=== PATIENT | male | born 1990 | race Caucasian/White ===

== ENCOUNTER 2017-06-01 02:15 | Inpatient (IN) | payer OTHER ==
[~2017-06-01] VITALS: Ht 187.9 cm; Wt 70.1 kg
[2017-06-01] VITALS (9 sets, daily range): BP systolic 101–144; BP diastolic 31–81
--- NOTE | ~2017-06-01 | ST ---
[place], [place] EXERCISE STRESS TEST [facility]PORT [id number] UN[facility] #: [id number] ROOM: 504 DOCTOR: BRENDA MOHAN MD BIRTHDATE: [birth year] DOS: 06/01/2017 INDICATION: Chest pain. PROCEDURE: The patient was exercised on treadmill using Javad protocol. The patient exercised for 10 minutes, reaching 91% of his maximum predicted heart rate. Maximal workload was 12 METs. Test was terminated due to achieving target heart rate. No complaint of chest pain, chest pressure, heaviness or tightness. BLOOD PRESSURE RESPONSE: Resting blood pressure 122/74 with ending blood pressure 122/80. ELECTROCARDIOGRAM INTERPRETATION: The resting echocardiogram showed normal sinus rhythm with early repolarization ____ RSR prime in V1 and V2. At the peak of the stress test, there was no evidence of any significant ST or T-wave changes suggestive of myocardial ischemia. No arrhythmias were noted. SUMMARY: 1. Adequate stress test with good functional capacity. 2. Negative treadmill stress test for stress induced myocardial ischemia. 3. No arrhythmia noted. 4. Blunted blood pressure response to exercise. 5. No nuclear were done. BRENDA MOHAN MD CM:STRESS:EXERCISE STRESS TEST REPORT [id number] BRENDA MOHAN MD
[~2017-06-01 02:15] MED LIST: ANAPROX DS550 MG PO; ATIVAN1 MG PO; CYCLOBENZAPRINE10 MG PO; CYCLOBENZAPRINE5 M3 PO; DAYPRO600 M1 PO; FLONASE ALLERG9.9 ML NS; FLONASE0.05 MG/AC NS; GEODON20 MG PO; GEODON60 MG PO; IBU-8800 MG PO; INDOMETHACIN ER75 MG PO; INDOMETHACIN25 M1 PO; K-DUR 20MEQ20 MEQ PO; KEFLEX500 MG PO; LATU20TA PO; LOTRIMIN 1%15 GM PO; MOOD STABILIZER PO; MOTRIN600 MG PO; MOTRIN800 MG PO; Motrin,Rufen800 MG PO; NAPROSYN500 MG PO; NASAL SALINE 4444 ML NS; NKHM; Orphenadrine C100 MG PO; PEPCID20 MG PO; PREDNISONE10 MG PO; RISPERDAL3 MG PO; ROBAXIN750 MG PO; SAPHRIS5 M1 SL; SEPTRA DS 800 M1 TAB PO; VISTARIL25 MG PO; VOLTAREN50 M1 PO; ZITHROMAX250 MG PO; ZOFRAN4 MG PO; ZYRTEC10 MG PO; Zofran4 MG PO
[2017-06-01 02:58] LABS: BASO # 0.1 10*3/uL (0.0-0.1); BASO % 1.4 % (0.0-1.0); EOS # 0.9 10*3/uL (0.0-0.4); EOS % 9.8 % (1.0-4.0); HEMATOCRIT 40.1 % (42.0-52.0); HEMOGLOBIN 14.2 g/dl (14.0-18.0); LYMPH # 3.8 10*3/uL (1.3-4.4); LYMPH % 40.8 % (27.0-41.0); MEAN CELL VOLUME 84.4 fl (80.0-94.0); MEAN CORPUSCULAR HGB 29.9 pg (27.0-31.0); MEAN CORPUSCULAR HGB CONC 35.4 g/dl (33.0-37.0); MEAN PLATELET VOLUME 9.9 fl (9.6-12.3); MONO # 0.7 10*3/uL (0.1-1.0); MONO % 7.5 % (3.0-9.0); NEUT # 3.7 10*3/uL (2.3-7.9); NEUT % 40.3 % (47.0-73.0); PLATELET COUNT AUTOMATED 238 10*3/uL (130-400); RED BLOOD COUNT 4.75 10*6/uL (4.50-5.90); RED CELL DISTRI WIDTH 12.9 % (0-14.5); WHITE BLOOD COUNT 9.2 10*3/uL (4.8-10.8)
[2017-06-01 03:17] LABS: ALBUMIN 3.8 gm/dl (3.1-4.5); ALKALINE PHOSPHATASE 59 U/L (45-117); BUN 13 mg/dl (7-24); CHLORIDE 105 mmol/L (98-107); CREATININE 1.06 mg/dL (0.70-1.30); POTASSIUM 3.3 mmol/L (3.5-5.1); SGOT/AST 20 IU/L (3-35); SGPT/ALT 24 U/L (12-78); SODIUM 139 mmol/L (136-145); TOTAL PROTEIN 6.6 gm/dL (6.4-8.2)
[2017-06-01 03:20] LABS: ACETAMINOPHEN (TYLENOL) < 2.0 ug/ml (10-30); ETHYL ALCOHOL < 3.0 mg/dl (<3)
--- NOTE | 2017-06-01 04:20 | NUR ---
TOOK OVER CARE OF PATIENT. NO COMPLAINTS OF PAIN. PATIENT ASLEEP WHEN I WALKED INTO ROOM. VISITOR STILL PRESENT AT BEDSIDE.
[2017-06-01 04:29] LABS: BILIRUBIN NEGATIVE (NEGATIVE); BLOOD NEGATIVE (NEGATIVE); CLARITY SL CLOUDY (CLEAR); COLOR YELLOW (YELLOW); GLUCOSE NEGATIVE (NEGATIVE); KETONE NEGATIVE (NEGATIVE); LEUKO ESTERASE NEGATIVE (NEGATIVE); NITRITE NEGATIVE (NEGATIVE); PH 6.5 (5.0-9.0); SPECIFIC GRAVITY <= 1.005 (1.005-1.030); UROBILINOGEN 0.2 E.U./dl (0.2-1.0)
[2017-06-01 04:35] LABS: BACTERIA TRACE; RBC 0-2 rbc/hpf (0-2)
[2017-06-01 04:38] LABS: URINE AMPHETAMINES < 1000 (1000ng/ml); URINE BARBITURATES < 200 (200ng/ml); URINE BENZODIAZEPINES < 200 (200ng/ml); URINE CANNABINOIDS (THC) < 50 (50ng/ml); URINE COCAINE < 300 (300ng/ml); URINE METHADONE < 300 (300ng/ml); URINE OPIATES < 300 (300ng/ml)
[2017-06-01 04:39] LABS: URINE PHENCYCLIDINE < 25 (25ng/ml)
--- NOTE | 2017-06-01 05:03 | NUR ---
REPORT FROM SWIMMERZOILA LIU
--- NOTE | 2017-06-01 05:11 | NUR ---
A 26, admitted to , under the services of SONYA Nolen DO with a diagnosis of LEFT SIDE CHEST PAIN. Chief complaint is PASSING OUT. Patient arrived via stretcher from ER. Monitor applied. Initial assessment completed. Vital signs taken and recorded. SONYA NOLEN DO notified of admission to the unit. Orders received. See assessment for past medical history, medications and allergies. Patient and/or family oriented to unit. [facility] visitation policy reviewed. Clothing/patient valuable form completed. MARIANO CARR
--- NOTE | 2017-06-01 05:47 | NUR ---
DR KILLIAN'S ANSWERING SERVIVE AWARE OF CONSULT
--- NOTE | 2017-06-01 08:30 | NUR ---
Patient resting quietly with no c/o discomfort. Respirations easy and regular. Vital signs stable. No overt distress. PARKER BOWER R
[2017-06-01 08:46] LABS: BASO # 0.1 10*3/uL (0.0-0.1); BASO % 1.1 % (0.0-1.0); EOS # 0.9 10*3/uL (0.0-0.4); EOS % 9.8 % (1.0-4.0); HEMATOCRIT 39.6 % (42.0-52.0); HEMOGLOBIN 13.8 g/dl (14.0-18.0); LYMPH # 2.9 10*3/uL (1.3-4.4); LYMPH % 32.2 % (27.0-41.0); MEAN CELL VOLUME 83.9 fl (80.0-94.0); MEAN CORPUSCULAR HGB 29.2 pg (27.0-31.0); MEAN CORPUSCULAR HGB CONC 34.8 g/dl (33.0-37.0); MEAN PLATELET VOLUME 9.9 fl (9.6-12.3); MONO # 0.7 10*3/uL (0.1-1.0); MONO % 7.6 % (3.0-9.0); NEUT # 4.4 10*3/uL (2.3-7.9); NEUT % 49.1 % (47.0-73.0); PLATELET COUNT AUTOMATED 229 10*3/uL (130-400); RED BLOOD COUNT 4.72 10*6/uL (4.50-5.90)
[2017-06-01 09:14] LABS: BUN 10 mg/dl (7-24); CHLORIDE 109 mmol/L (98-107); CHOLESTEROL 120 mg/dL (<200); CREATININE 1.01 mg/dL (0.70-1.30); HDL CHOLESTEROL 46 mg/dl (40-60); LDL CHOLESTEROL 61 mg/dL (9-159); SODIUM 142 mmol/L (136-145); TRIGLYCERIDES 63 mg/dl (<150); VLDL CHOLESTEROL 13 mg/dL (6-40)
[2017-06-01 10:12] LABS: VITAMIN D, 25-HYDROXY 31.7 ng/mL (30-100)
--- NOTE | 2017-06-01 10:45 | NUR ---
PT IS HAVING ECHO DONE.
--- NOTE | 2017-06-01 12:45 | NUR ---
INFORMED CONSENT OBTAINED FOR STANDARD GXT WITH DR. MOHAN. RESTING EKG NSR WITH A RESTING HR OF 58 WITH BP OF 122/74 AND HR OF 68 WITH BP OF 108/64 IN STANDING POSITION. PT COMPLETED 10:00 OF A ELROY PROTOCOL WITH COMPLETION OF 1:00 OF STAGE IV AT 4.2 MPH AND 16% GRADE. REACHED A PEAK HR OF 177 WHICH IS 91% OF PREDICTED MAX WITH A PEAK BP OF 138/60. HAD NO CHEST PAIN OR ANY EKG CHANGES. TEST TERMINATED BECAUSE OF PHYSICIAN DISCRETION. HAS A GOOD EXERCISE TOLERANCE. IN RECOVERY HAD C/O LIGHTHEADEDNESS. LIGHTHEADEDNESS RELIEVED AT 3:00 RECOVERY WITH DRINKING WATER. BP 100/62 WITH FEELING LIGHTHEADED. LAST RECOVERY HR OF 97 WITH BP OF 116/64. NEGATIVE STANDARD GXT. RETURNED TO NURSING UNIT VIA WHEELCHAIR.
--- NOTE | 2017-06-01 13:12 | NUR ---
PT BACK FROM STRESS TEST.
--- NOTE | 2017-06-01 16:22 | NUR ---
PT RESTING IN BED. NO DISTRESS NOTED. ORTHOSTATIC BP DONE ORDERED. PT DIZZY WHEN STANDING . WILL MONITOR. CALL LIGHT WITHIN REACH
[2017-06-02] VITALS: BP 137/66
[2017-06-02 06:49] LABS: BASO # 0.1 10*3/uL (0.0-0.1); BASO % 1.2 % (0.0-1.0); EOS # 0.8 10*3/uL (0.0-0.4); EOS % 9.9 % (1.0-4.0); HEMATOCRIT 42.3 % (42.0-52.0); HEMOGLOBIN 14.7 g/dl (14.0-18.0); LYMPH # 3.3 10*3/uL (1.3-4.4); LYMPH % 39.9 % (27.0-41.0); MEAN CELL VOLUME 85.6 fl (80.0-94.0); MEAN CORPUSCULAR HGB 29.8 pg (27.0-31.0); MEAN CORPUSCULAR HGB CONC 34.8 g/dl (33.0-37.0); MEAN PLATELET VOLUME 10.5 fl (9.6-12.3); MONO # 0.7 10*3/uL (0.1-1.0); MONO % 8.2 % (3.0-9.0); NEUT # 3.4 10*3/uL (2.3-7.9); NEUT % 40.7 % (47.0-73.0); PLATELET COUNT AUTOMATED 233 10*3/uL (130-400); RED BLOOD COUNT 4.94 10*6/uL (4.50-5.90); RED CELL DISTRI WIDTH 13.2 % (0-14.5); WHITE BLOOD COUNT 8.3 10*3/uL (4.8-10.8)
[2017-06-02 07:02] LABS: BUN 9 mg/dl (7-24); CHLORIDE 108 mmol/L (98-107); CREATININE 1.02 mg/dL (0.70-1.30); POTASSIUM 3.8 mmol/L (3.5-5.1); SODIUM 142 mmol/L (136-145)
[2017-06-02 08:00] VITALS: BP 130/60
--- NOTE | 2017-06-02 08:30 | NUR ---
Grey Roll Man in to talk to patient. Patient states lives at HOME with HIS BROTHER. There are 3 steps in the home. Physician: [facility]: [facility] [place] Home health services: NONE Patient's level of ADLs: INDEPENDENT Patient has working utilities: YES DME: NONE Follow-up physician's appointment after d/c: WILL BE MADE PRIOR TO DC Does patient want to access PORTAL?: Discharge plan HOME. ALICE CHEN
[2017-06-02 12:00] VITALS: BP 154/61
[2017-06-02] MEDS ORDERED: COLCHICINE0.6 M1 PO (12:04)
[2017-06-02] MEDS ORDERED: MOTRIN 600 MG E4 TAB PO ×2 (12:04→12:10)
--- NOTE | 2017-06-02 13:34 | NUR ---
Discharge instructions reviewed with patient. Patient receptive and verbalizes understanding. Written instructions given to patient. SANDRO WING
== END 2017-06-02 13:34 | disposition home or self-care (01) | DRG 316 ==
LOC: ED 02:15 → 5E 04:28 → EDHOLD 04:28 → 5E 04:42
PROVIDERS: Emergency Medicine Emergency Medical Services; Hospitalist; Internal Medicine; ADMIT Emergency Medicine
PROC: 4A02XM4 Measurement of Cardiac Total Activity, External Approach (ICD-10-PCS; principal; 2017-06-01)
DX: I30.9 Acute pericarditis, unspecified (principal); D70.9 Neutropenia, unspecified; F20.9 Schizophrenia, unspecified; R73.9 Hyperglycemia, unspecified; F31.9 Bipolar disorder, unspecified; F55.3 Abuse of steroids or hormones; E87.6 Hypokalemia; H91.92 Unspecified hearing loss, left ear; F90.9 Attention-deficit hyperactivity disorder, unspecified type; I34.0 Nonrheumatic mitral (valve) insufficiency; Z87.891 Personal history of nicotine dependence; Z90.49 Acquired absence of other specified parts of digestive tract; Z81.1 Family history of alcohol abuse and dependence; Z91.018 Allergy to other foods; Z91.010 Allergy to peanuts; Z91.048 Other nonmedicinal substance allergy status; Z79.899 Other long term (current) drug therapy

== ENCOUNTER 2020-07-07 19:31 | Emergency (ER) | payer OTHER ==
[~2020-07-07 19:31] MED LIST changes: +BUSPIRONE HCL7.5 MG PO; +COLCHICINE0.6 M1 PO; +DOXEPIN25 MG PO; +MOTRIN 600 MG E4 TAB PO
== END 2020-07-07 19:44 | disposition left against medical advice (07) ==
LOC: ED 19:31
DX: Z76.0 Encounter for issue of repeat prescription (principal); Z53.21 Procedure and treatment not carried out due to patient leaving prior to being seen by health care provider

== ENCOUNTER 2020-07-07 19:53 | Emergency (ER) | payer OTHER ==
[~2020-07-07] VITALS: Ht 180.3 cm; Wt 68.0 kg
[2020-07-07 20:24] LABS: BASO # 0.1 10*3/uL (0.0-0.1); BASO % 0.7 % (0.0-1.0); EOS # 0.5 10*3/uL (0.0-0.4); EOS % 4.9 % (1.0-4.0); HEMATOCRIT 44.2 % (42.0-52.0); LYMPH # 2.3 10*3/uL (1.3-4.4); LYMPH % 21.9 % (27.0-41.0); MEAN CELL VOLUME 84.4 fl (80.0-94.0); MEAN CORPUSCULAR HGB 28.8 pg (27.0-31.0); MEAN CORPUSCULAR HGB CONC 34.2 g/dl (33.0-37.0); MEAN PLATELET VOLUME 9.8 fl (9.6-12.3); MONO # 0.9 10*3/uL (0.1-1.0); MONO % 8.5 % (3.0-9.0); NEUT # 6.6 10*3/uL (2.3-7.9); NEUT % 63.7 % (47.0-73.0); PLATELET COUNT AUTOMATED 271 10*3/uL (130-400); RED BLOOD COUNT 5.24 10*6/uL (4.50-5.90); RED CELL DISTRI WIDTH 12.5 % (0-14.5); WHITE BLOOD COUNT 10.4 10*3/uL (4.8-10.8)
[2020-07-07 20:34] LABS: INTERNATIONAL NORM RATIO 1.1 (2.0-3.5)
[2020-07-07 20:42] LABS: ALBUMIN 3.8 gm/dl (3.1-4.5); ALKALINE PHOSPHATASE 87 U/L (45-117); BUN 5 mg/dl (7-24); CHLORIDE 106 mmol/L (98-107); CREATININE 1.05 mg/dL (0.70-1.30); POTASSIUM 3.7 mmol/L (3.5-5.1); SGOT/AST 16 IU/L (3-35); SGPT/ALT 28 U/L (12-78); SODIUM 143 mmol/L (136-145)
[2020-07-07 20:43] LABS: TROPONIN I < 0.015 ng/ml (<0.045)
== END 2020-07-07 21:42 | disposition left against medical advice (07) ==
LOC: ED 19:53
PROVIDERS: Internal Medicine
DX: R07.89 Other chest pain (principal); F90.9 Attention-deficit hyperactivity disorder, unspecified type; F31.9 Bipolar disorder, unspecified; F17.200 Nicotine dependence, unspecified, uncomplicated; Z91.018 Allergy to other foods; Z91.010 Allergy to peanuts; Z91.048 Other nonmedicinal substance allergy status; Z79.899 Other long term (current) drug therapy; Z90.49 Acquired absence of other specified parts of digestive tract; Z53.29 Procedure and treatment not carried out because of patient's decision for other reasons

== ENCOUNTER → 2021-06-06 | Outpatient (CLI) | payer OTHER ==
[2021-06-06 10:55] LABS: BILIRUBIN Negative (Negative); BLOOD Negative (Negative); CLARITY Cloudy (Clear); COLOR Yellow (Yellow); GLUCOSE Negative (Negative); KETONE Negative (Negative); LEUKO ESTERASE 1+ (Negative); NITRITE Negative (Negative); PH 7.5 (4.5-8.0); SPECIFIC GRAVITY 1.025 (1.001-1.030)
[2021-06-06 11:14] LABS: WBC TNTC wbc/hpf (0-5)
== END | disposition home or self-care (01) ==
LOC: LAB 10:00
PROVIDERS: ATTEND Family Medicine
DX: N30.01 Acute cystitis with hematuria (principal)

== ENCOUNTER 2021-06-13 02:42 | Emergency (ER) | payer OTHER ==
[~2021-06-13] VITALS: Ht 187.9 cm; Wt 65.8 kg
== END 2021-06-13 06:27 | disposition home or self-care (01) ==
LOC: ED 02:42
DX: B34.9 Viral infection, unspecified (principal); Z20.822 Contact with and (suspected) exposure to COVID-19

== ENCOUNTER 2022-01-18 09:36 | Emergency (ER) | payer OTHER ==
[2022-01-18] MEDS ORDERED: TYLENOL325 M1 PO (11:44)
[2022-01-18] MEDS ORDERED: NAPROXEN250 MG PO (11:44)
== END 2022-01-18 11:57 | disposition home or self-care (01) ==
LOC: ED 09:36
DX: S20.212A Contusion of left front wall of thorax, initial encounter (principal); S49.92XA Unspecified injury of left shoulder and upper arm, initial encounter; M54.2 Cervicalgia; Z91.018 Allergy to other foods; Z91.010 Allergy to peanuts; Z90.49 Acquired absence of other specified parts of digestive tract; Y08.89XA Assault by other specified means, initial encounter; Y93.89 Activity, other specified; Y92.89 Other specified places as the place of occurrence of the external cause; Y99.8 Other external cause status

== ENCOUNTER 2022-11-06 20:12 | Emergency (ER) | payer OTHER ==
[~2022-11-06] VITALS: Wt 66.2 kg
[~2022-11-06 20:12] MED LIST changes: +NAPROXEN250 MG PO; +TYLENOL325 M1 PO
[2022-11-06 21:07] LABS: BASO # 0.1 10*3/uL (0.0-0.1); EOS # 0.5 10*3/uL (0.0-0.4); EOS % 4.6 % (1.0-4.0); HEMATOCRIT 42.1 % (42.0-52.0); LYMPH # 2.6 10*3/uL (1.3-4.4); MEAN CELL VOLUME 85.9 fl (80.0-94.0); MEAN CORPUSCULAR HGB CONC 34.9 g/dl (33.0-37.0); MEAN PLATELET VOLUME 9.8 fl (9.6-12.3); NEUT # 6.6 10*3/uL (2.3-7.9); NEUT % 61.2 % (47.0-73.0); PLATELET COUNT AUTOMATED 299 10*3/uL (130-400); RED CELL DISTRI WIDTH 12.6 % (0-14.5); WHITE BLOOD COUNT 10.7 10*3/uL (4.8-10.8)
[2022-11-06 21:25] LABS: ACT PARTIAL THROMBO TIME 33.6 SECONDS (20.0-32.1)
[2022-11-06 21:25] LABS: CPK 324 U/L (34-171); MYOGLOBIN 79.3 ng/ml (16-116)
[2022-11-06 21:26] LABS: ALKALINE PHOSPHATASE 50 U/L (46-116); BUN 10 mg/dl (9-23); CHLORIDE 106 mmol/L (98-107); POTASSIUM 3.9 mmol/L (3.4-5.1); SGPT/ALT 15 U/L (10-49)
[2022-11-06 21:27] LABS: ETHYL ALCOHOL < 3.0 mg/dl (<3)
== END 2022-11-06 23:04 | disposition home or self-care (01) ==
LOC: ED 20:12
PROVIDERS: Emergency Medicine
DX: R41.0 Disorientation, unspecified (principal); T50.7X5A Adverse effect of analeptics and opioid receptor antagonists, initial encounter; F29 Unspecified psychosis not due to a substance or known physiological condition; F17.200 Nicotine dependence, unspecified, uncomplicated; Z91.018 Allergy to other foods; Z98.890 Other specified postprocedural states; Z91.010 Allergy to peanuts; Z90.49 Acquired absence of other specified parts of digestive tract; Y92.89 Other specified places as the place of occurrence of the external cause